=== PATIENT | male | born 1940 | race Caucasian/White ===

== ENCOUNTER 2022-04-09 01:07 | Observation (INO) | payer MEDICARE, OTHER ==
[~2022-04-09] VITALS: Ht 170.2 cm; Wt 81.0 kg
[2022-04-09 01:22] LABS: BASOPHILS % (AUTO) 0.7 % (0-1); EOSINOPHILS # (AUTO) 0.1 X10'3 (0-0.9); EOSINOPHILS % (AUTO) 1.8 % (0-6); HEMATOCRIT 49.6 % (42.0-52.0); HEMOGLOBIN 17.1 g/dl (14.0-17.9); LYMPHOCYTES # (AUTO) 1.5 X10'3 (1.1-4.8); LYMPHOCYTES % (AUTO) 24.4 % (21-51); MEAN CORPUSCULAR HEMOGLOBIN 31.3 PG (27.0-31.0); MEAN CORPUSCULAR HGB CONC 34.4 g/dL (33.0-36.5); MEAN PLATELET VOLUME 8.1 FL (7.4-10.4); MONOCYTES # (AUTO) 0.6 X10'3 (0-0.9); MONOCYTES % (AUTO) 9.3 % (2-12); NEUTROPHILS % (AUTO) 63.8 % (42-75); PLATELET COUNT 219 X10'3 (140-440); RED BLOOD COUNT 5.45 X10'6 (4.70-6.10); WHITE BLOOD COUNT 6.2 X10'3 (4.5-11.0)
[2022-04-09] MEDS ORDERED: CefTRIAXone 2gm/D5W 50ml BAG 50 ML IV ONE (01:45)
[2022-04-09] MEDS ORDERED: ipratropium/albuterol 3ml nebule NEB ONE (01:45)
[2022-04-09] MEDS ORDERED: methylPREDNISolone sod succ 125mg/2ml vial IV ONE (01:45)
[2022-04-09 02:13] LABS: ALANINE AMINOTRANSFERASE 33 U/L (12-78); ALBUMIN 3.9 G/DL (3.4-5.0); ALBUMIN/GLOBULIN RATIO 1.1 (1.1-1.5); ALKALINE PHOSPHATASE 115 IU/L (46-116); ANION GAP 12 (8-16); ASPARTATE AMINO TRANSFERASE 27 U/L (10-37); BLOOD UREA NITROGEN 17 MG/DL (7-18); BUN/CREATININE RATIO 18.5 (5.4-32.0); CALCIUM 8.9 MG/DL (8.5-10.1); CHLORIDE 100 MMOL/L (99-107); CREATININE 0.92 MG/DL (0.60-1.10); GLUCOSE 119 MG/DL (70-104); POTASSIUM 3.8 MMOL/L (3.5-5.1); SODIUM 139 MMOL/L (135-145); TOTAL PROTEIN 7.3 G/DL (6.4-8.2); eGFR 79 ML/MIN
--- NOTE | 2022-04-09 02:39 | NUR ---
Patient room air trialed, patient noted desat to 88% on room air while seated. Patient placed back on 2L via NC, sat improved to 93 percent.
[2022-04-09] MEDS ORDERED: NIFE30TA95 PO (02:43)
[2022-04-09] MEDS ORDERED: LISI5TAB22 PO (02:44)
[2022-04-09] MEDS ORDERED: LEVO50TA PO ×2 (02:45→03:04)
[2022-04-09] MEDS ORDERED: ATOR10TA87 PO (02:45)
[2022-04-09] MEDS ORDERED: UBID100C16 PO (02:46)
[2022-04-09] MEDS ORDERED: L. A1CAP2 PO (02:46)
[2022-04-09] MEDS ORDERED: magnesium hydroxide 30ml (MOM) UD suspension PO PRN (03:25)
[2022-04-09] MEDS ORDERED: mag hydrox/Alum hydrox/simeth 30ml oral suspension PO PRN (03:25)
[2022-04-09] MEDS ORDERED: acetaminophen 325mg tablet PO PRN (03:25)
[2022-04-09] MEDS ORDERED: magnesium Cl slow-release 64mg tablet PO PRN (03:25)
[2022-04-09] MEDS ORDERED: magnesium 4gm in 100ml NS 100 ML IV PRN (03:25)
[2022-04-09] MEDS ORDERED: potassium Cl 20 mEq SR tablet PO PRN ×2 (03:25)
[2022-04-09] MEDS ORDERED: ondansetron/PF 4mg/2ml inj IV PRN (03:25)
[2022-04-09] MEDS ORDERED: potassium Cl 40MEQ/1/2NS 520ml 520 ML IV PRN (03:25)
[2022-04-09] MEDS ORDERED: albuterol 2.5 MG/3 ML nebule NEB PRN (03:40)
[2022-04-09] MEDS ORDERED: lisinopril 5mg tablet PO ONE (03:40)
--- NOTE | 2022-04-09 04:37 | NUR ---
Report called to surgical unit, patient cleared for transport to receiving unit.
[2022-04-09 05:33] VITALS: BP 170/88
[2022-04-09 06:00] VITALS: BP 158/99
--- NOTE | 2022-04-09 06:00 | NUR ---
Patient in room [id number]. I have received report from Bambi BLUNT and had the opportunity to ask questions and assume patient care.
[2022-04-09 06:29] LABS: MAGNESIUM 2.1 MG/DL (1.5-2.4); POTASSIUM 3.4 MMOL/L (3.5-5.1)
--- NOTE | 2022-04-09 06:37 | NUR ---
Report to Abi NELSON.
[2022-04-09] MEDS ORDERED: levoTHYROXINE 25mcg tablet PO SCH (07:00)
[2022-04-09] MEDS ORDERED: docusate sod 100mg capsule PO SCH (08:00)
[2022-04-09] MEDS ORDERED: non-formulary drug (Ubidecarenone (Coq-10) 300 MG) PO SCH (08:00)
[2022-04-09] MEDS ORDERED: NIFEdipine XL 30mg tablet PO SCH (08:00)
[2022-04-09] MEDS ORDERED: K and/or MAG REPLACEMENT MC SCH (08:00)
[2022-04-09] MEDS ORDERED: methylPREDNISolone sod succ/PF 40mg inj. IV SCH (08:00)
[2022-04-09] MEDS ORDERED: heparin, porcine 5000 units/ml vial SQ SCH (08:00)
[2022-04-09] MEDS ORDERED: atorvastatin 10mg tablet PO SCH (08:00)
[2022-04-09] MEDS ORDERED: lisinopril 5mg tablet PO SCH (08:00)
--- NOTE | 2022-04-09 10:43 | NUR ---
PAGER ID: [phone] MESSAGE: [id number]- Catrina, F- Patient is asking what is the plan? He would like to go home. Pls advise? MASOOD Mcknight LVn [id number]
[2022-04-09 11:01] VITALS: BP 172/79
[2022-04-09 12:02] LABS: ABG BASE EXCESS -0.9 mmol/L (-2.0-2.0); ABG HCO3 22.6 mmol/L (22.0-26.0); ABG PCO2 (T) 35.1 mmHg (35.0-48.0); ABG PO2 (T) 50.8 mmHg (75.0-100.0); ALLEN'S TEST POSITIVE; FCOHb 0.2 % (0.0-3.9); FMetHb 0.4 % (0.0-1.5); FO2Hb 87.5 % (94-97); TOTAL HEMOGLOBIN 18.2 G/dl (14.0-17.9)
--- NOTE | 2022-04-09 12:07 | NUR ---
PAGER ID: [phone] MESSAGE: [id number] Magali Fritz study done, I have the results in the chart. MASOOD Mcknight [id number]
--- NOTE | 2022-04-09 12:58 | NUR ---
O2 Sat at rest on room air:9% If below 89%: Recovery O2 Sat at rest on ___LPM:___%:___% via (mask/nasal cannula, etc..) No further documentation is necessary. If O2 Sat did not drop below 89% on room air,ambulate patient on room air. O2 Sat while ambulating on room air:89% Recovery O2 Sat while ambulating on 4LPM:96% No further documentation is necessary. If patient does not drop below 89% while ambulating, he/she does not qualify for home O2. Addendum: 04/09/22 at 1300 by Roxanna Jimenez LVN correct documentation O2 Sat at rest on room air:91% If below 89%: Recovery O2 Sat at rest on ___LPM:___%:___% via (mask/nasal cannula, etc..) No further documentation is necessary. If O2 Sat did not drop below 88% on room air,ambulate patient on room air. O2 Sat while ambulating on room air:89% Recovery O2 Sat while ambulating on 4LPM:96% No further documentation is necessary. If patient does not drop below 89% while ambulating, he/she does not qualify for home O2. Addendum: 04/09/22 at 1327 by Roxanna Jimenez LVN please disregard documentation above and see correct documentation below: O2 Sat at rest on room air:91% If below 89%: Recovery O2 Sat at rest on ___LPM:___%:___% via (mask/nasal cannula, etc..) No further documentation is necessary. If O2 Sat did not drop below 89% on room air,ambulate patient on room air. O2 Sat while ambulating on room air:88% Recovery O2 Sat while ambulating on 4LPM:96% No further documentation is necessary. If patient does not drop below 89% while ambulating, he/she does not qualify for home O2.
--- NOTE | 2022-04-09 13:00 | NUR ---
I have reviewed and agree with interventions, assessments and documentation by OMAR Mcknight.
--- NOTE | 2022-04-09 15:15 | NUR ---
Patient discharged home today with oxygen. Discharge instructions were given and questions were answered. IV removed by RN. Medications weren't e-sent to pharmacy due to no pharmacy on file. I called them into [facility]. Patient appropriate for discharge home. Patient wheeled down stairs into the care of and left in private vehicle. Demetria called so they can meet patient at home to finish dropping off oxygen supplies.
--- NOTE | 2022-04-09 15:40 | NUR ---
PAGER ID: [phone] MESSAGE: [id number]-Catrina, F- patient oxygen was delivered. Is he ok to be discharged now? Pls advise? [id number]
[2022-04-09] MEDS ORDERED: ALBU2.5V7 NEB (15:49)
[2022-04-09] MEDS ORDERED: LEVO-65 PO (15:49)
[2022-04-09] MEDS ORDERED: PRED10TA23 PO (15:50)
--- NOTE | 2022-04-09 16:47 | NUR ---
PAGER ID: [phone] MESSAGE: [id number]- Catrina F- Pharmacy said Albuterol Sulfate 2.5mg/3Ml needs to be on a paper Prescription & faxed. The RX needs to have dx, ICD code, NPI#, wet signature/date. Pls let me know when its done and i will pick it up.MASOOD [id number]
--- NOTE | 2022-04-09 16:50 | NUR ---
Per MD patient Albuterol neb meds can be discontinued. I called patient and advised of this.
== END 2022-04-09 17:00 | disposition home or self-care (01) ==
LOC: ER 01:08 → ED HOLD 03:23 → SUR 3N 05:22
PROVIDERS: ADMIT Internal Medicine; ATTEND Internal Medicine
DX: J44.1 Chronic obstructive pulmonary disease with (acute) exacerbation (principal); Z20.822 Contact with and (suspected) exposure to COVID-19; I10 Essential (primary) hypertension; E03.9 Hypothyroidism, unspecified; I25.10 Atherosclerotic heart disease of native coronary artery without angina pectoris; E78.00 Pure hypercholesterolemia, unspecified; Z87.891 Personal history of nicotine dependence; Z66 Do not resuscitate; Z95.1 Presence of aortocoronary bypass graft; Z79.899 Other long term (current) drug therapy
CPT/HCPCS: 36415; 36600; 71045; 80053; 82803; 83735; 83880; 84132; 84484; 85018; 85025; 87081; 87502; 87503; 87635; 93005; 94640; 94760; 96365; 96372; 96375; 96376; 99285; C9803; G0378; J0696; J1644; J2920; J2930